=== PATIENT | male | born 1955 ===

== ENCOUNTER 2016-10-13 11:04 | Inpatient (IN) | payer MEDICAID ==
[2016-10-13 11:48] VITALS: BMI 39.2
[2016-10-13] MEDS ORDERED: Midazolam 2 MG/2 ML VIAL ONE (14:36)
[2016-10-13] MEDS ORDERED: Propofol 10 mg/ml Inj (20 ML) ONE (14:36)
[2016-10-13] MEDS ORDERED: ceFAZolin IV 1 gm in Dextrose 100 ML IVPB ONE (14:45)
[2016-10-13] MEDS ORDERED: Morphine Monoject Barrel PCA 1mg/ml IV PRN (17:39)
[2016-10-13] MEDS: HYDROmorphone 0.5 mg/0.5 ml ISec IVP PRN ×4 (18:07→18:55)
[2016-10-13] MEDS: Morphine Monoject Barrel PCA 1mg/ml IV PRN (19:00)
[2016-10-13] MEDS: ceFAZolin 1 gm FROZEN Premix 50 ML IVPB SCH (23:15)
[2016-10-13] MEDS: Potassium Chl 10 mEq in D5-1/2 1,000 ML IV SCH (23:25)
[2016-10-14] MEDS: ceFAZolin 1 gm FROZEN Premix 50 ML IVPB SCH (05:50)
[2016-10-14 06:46] LABS: BASO % 0.2 % (0.0-2.0); EOS % 0.1 % (0.0-4.0); HEMATOCRIT 38.4 % (35.0-51.0); LYMPH # 1.5 K/uL (1.0-4.3); LYMPH % 11.3 % (20.0-40.0); MEAN CELL VOLUME 84.8 fL (80.0-94.0); MEAN CORPUSCULAR HEMOGLOBIN 27.7 pg (27.0-31.0); MEAN CORPUSCULAR HGB CONC 32.6 g/dL (33.0-37.0); MEAN PLATELET VOLUME 8.2 fL (7.2-11.7); MONO # 1.5 K/uL (0.0-0.8); MONO % 10.8 % (0.0-10.0); RED CELL DISTRIBUTION WIDTH 14.6 % (11.5-14.5); WHITE BLOOD COUNT 13.6 K/uL (4.8-10.8)
[2016-10-14 06:49] LABS: CHLORIDE 100 mmol/L (98-107); POTASSIUM 3.9 mmol/L (3.6-5.2); SODIUM 139 mmol/L (132-148)
[2016-10-14 06:52] LABS: BLOOD UREA NITROGEN 19 mg/dL (9-20); CARBON DIOXIDE 26 mmol/L (22-30); GFR AFRICAN-AMERICAN > 60; GLUCOSE,RANDOM 123 mg/dL (75-110)
[2016-10-14 06:53] LABS: CALCIUM 6.9 mg/dl (8.6-10.4)
[2016-10-14] MEDS: Potassium Chl 10 mEq in D5-1/2 1,000 ML IV SCH ×2 (09:46→20:23)
[2016-10-14] MEDS: Morphine Monoject Barrel PCA 1mg/ml IV PRN (10:26)
[2016-10-14] MEDS: ceFAZolin IV 1 gm in Dextrose 50 ML IVPB SCH ×2 (13:17→21:37)
--- NOTE | 2016-10-14 16:07 | PCM.URO ---
Urology Progress Note - Objective Lab Results Last 24 Hours: Laboratory Results - last 24 hr 10/13/16 10/14/16 10/14/16 21:33 06:36 06:38 WBC 13.6 H RBC 4.53 Hgb 12.5 Hct 38.4 MCV 84.8 MCH 27.7 MCHC 32.6 L RDW 14.6 H Plt Count 292 MPV 8.2 Neut % (Auto) 77.6 H Lymph % (Auto) 11.3 L [place] % (Auto) 10.8 H Eos % (Auto) 0.1 Baso % (Auto) 0.2 Neut # 10.5 H Lymph # 1.5 [place] # 1.5 H Eos # 0.0 Baso # 0.0 Sodium 139 Potassium 3.9 Chloride 100 Carbon Dioxide 26 Anion Gap 17 BUN 19 Creatinine 1.2 Est GFR ( Amer) > 60 Est GFR (Non-Af Amer) > 60 POC Glucose (mg/dL) 113 H Random Glucose 123 H Calcium 6.9 L 10/14/16 10/14/16 07:54 11:15 WBC RBC Hgb Hct MCV MCH MCHC RDW Plt Count MPV Neut % (Auto) Lymph % (Auto) [place] % (Auto) Eos % (Auto) Baso % (Auto) Neut # Lymph # [place] # Eos # Baso # Sodium Potassium Chloride Carbon Dioxide Anion Gap BUN Creatinine Est GFR ( Amer) Est GFR (Non-Af Amer) POC Glucose (mg/dL) 116 H 144 H Random Glucose Calcium Intake & Output: Intake & Output 10/13/16 10/14/16 10/14/16 18:59 06:59 18:59 Intake Total 2000 900 Output Total 320 1010 Balance 1680 -110 Weight 175 lb Intake: IV 2000 Intake, IV Amount 900 Left Forearm 900 Output: Drainage 70 260 Right Lower Abdomen 40 Left Lower Abdomen 60 Urine 250 750 Urethral (Armstrong) 400 Other: Voiding Method Indwelling Catheter Vital Signs: Vital Signs - 24 hr 10/13/16 10/13/16 10/13/16 17:48 18:00 18:15 Temperature 97 F L Pulse Rate 71 60 60 Pulse Rate [ Apical] Respiratory 13 10 L 10 L Rate Blood Pressure 102/77 114/64 116/78 O2 Sat by Pulse 100 100 100 Oximetry 10/13/16 10/13/16 10/13/16 18:30 18:45 19:00 Temperature Pulse Rate 60 76 76 Pulse Rate [ Apical] Respiratory 12 11 L 11 L Rate Blood Pressure 112/76 102/68 114/73 O2 Sat by Pulse 100 100 100 Oximetry 10/13/16 10/13/16 10/13/16 19:15 19:30 20:00 Temperature Pulse Rate 81 74 85 Pulse Rate [ Apical] Respiratory 11 L 11 L 11 L Rate Blood Pressure 112/76 104/72 102/75 O2 Sat by Pulse 100 100 100 Oximetry 10/13/16 10/13/16 10/13/16 20:30 21:00 21:30 Temperature Pulse Rate 87 84 76 Pulse Rate [ Apical] Respiratory 15 14 13 Rate Blood Pressure 115/73 103/72 102/75 O2 Sat by Pulse 100 100 100 Oximetry 10/13/16 10/14/16 10/14/16 22:00 00:00 00:01 Temperature 98.1 F 98 F Pulse Rate 94 H 79 Pulse Rate [ 94 H Apical] Respiratory 14 15 Rate Blood Pressure 117/79 108/73 O2 Sat by Pulse 97 97 Oximetry 10/14/16 10/14/16 10/14/16 01:19 04:00 04:02 Temperature 98.2 F Pulse Rate 76 70 Pulse Rate [ Apical] Respiratory 14 14 Rate Blood Pressure 122/80 O2 Sat by Pulse 99 100 Oximetry 10/14/16 10/14/16 10/14/16 06:00 07:00 08:00 Temperature 98.3 F Pulse Rate 67 83 83 Pulse Rate [ Apical] Respiratory 12 12 13 Rate Blood Pressure O2 Sat by Pulse 98 96 98 Oximetry 10/14/16 10/14/16 10/14/16 08:01 09:00 10:00 Temperature Pulse Rate 76 69 94 H Pulse Rate [ Apical] Respiratory 12 16 20 Rate Blood Pressure 123/85 O2 Sat by Pulse 100 99 100 Oximetry 10/14/16 12:00 Temperature 98.5 F Pulse Rate Pulse Rate [ Apical] Respiratory Rate Blood Pressure O2 Sat by Pulse Oximetry
[2016-10-15] MEDS: Levothyroxine 88 MCG TAB PO SCH (06:13)
[2016-10-15] MEDS: ceFAZolin IV 1 gm in Dextrose 50 ML IVPB SCH ×3 (06:14→21:18)
[2016-10-15] MEDS: Potassium Chl 10 mEq in D5-1/2 1,000 ML IV SCH ×3 (06:15→17:34)
[2016-10-16] MEDS: Potassium Chl 10 mEq in D5-1/2 1,000 ML IV SCH ×5 (02:30→21:51)
[2016-10-16] MEDS: ceFAZolin IV 1 gm in Dextrose 50 ML IVPB SCH ×3 (05:25→21:49)
[2016-10-16] MEDS: Levothyroxine 88 MCG TAB PO SCH (05:30)
[2016-10-16] MEDS ORDERED: Magnesium Hydroxide Susp 30 ml UD PO ONE (06:53)
[2016-10-16] MEDS ORDERED: Pneumococcal 23-Valent Vaccine SC ONE (10:00)
[2016-10-17 01:20] VITALS: RESP 20; O2SAT 96
[2016-10-17] MEDS: ceFAZolin IV 1 gm in Dextrose 50 ML IVPB SCH ×2 (05:07→13:50)
[2016-10-17] MEDS: Levothyroxine 88 MCG TAB PO SCH (06:53)
[2016-10-17 08:07] VITALS: BP 152/87; PULSE 69; TEMP 98.9
--- NOTE | 2016-10-20 01:28 | PN ---
DATE: 10/14/2016 Overnight I spoke to the nurses several times. The patient was admitted actually to the intensive care unit because there were no beds available, bu t had some close monitoring. During the night, the patient put out about 100 mL from each DAIJA. Most of the fluid is draining from the Armstrong catheter. The urine outputs are all noted on the chart. PHYSICAL EXAMINATION: GENERAL: Well-nourished male currently resting comfortably. VITAL SIGNS: Within normal limits, included in the chart. LUNGS: Clear. ABDOMEN: Overall soft, nontender. DIAGNOSIS: Clinically localized prostate cancer. PLAN: We will continue to monitor the patient closely, measuring I's and O's, etc. We are going to continue to monitor the patient and, when a bed is available, we will plan to move th e patient as well. Jefe Humphreys MD cc: [id number] TT: 10/20/2016 01:26:47 Confirmation # [id number] Dictation # [id number] mn
--- NOTE | 2016-10-20 01:30 | PN ---
DATE: 10/16/2016 See the previously dictated notes, history and physical, operative report from 10/13, progress note f rom 10/14. SUBJECTIVE: He voices no major complaints and just beginning to learn how to take care of a Armstrong ca theter. He complains of some gas and constipation. See below-listed plans. No other medical changes. The patient is also being seen by his medical doctor, Dr. Ramesh Rivera. REVIEW OF SYSTEMS: Listed above. PHYSICAL EXAMINATION: GENERAL: Well-nourished male in no apparent distress. VITAL SIGNS: Noted. ABDOMEN: Overall soft. There are positive bowel sounds. Not grossly distended, mildly distended kn ow for sure. All within normal limits postoperative. Armstrong catheter is in place draining relatively clear urine. Again, some blood-tinge is noted. DAIJA ricks s minimal output at this point. See the plans listed below. DIAGNOSIS: Clinically, localized prostate cancer. He is status post radical retropubic prostatectom y. PLAN: The urology plan is as follows: I am planning to remove the JPS tomorrow and then discharge t he patient home. We are going to start arranging for a visiting nurse service and for Armstrong catheter care. I explained this all to the patient in detail with translation. Jefe Humphreys MD cc: [id number] TT: 10/20/2016 01:30:14 Confirmation # [id number] Dictation # [id number] mn
--- NOTE | 2016-10-20 01:35 | DS ---
See history and physical, operative reports, daily progress notes. The patient underwent a radical retropubic prostatectomy. He is postop. It was within the normal co urse. At this point, he has resumed his diet, he has resumed bowel function. We removed the JPs. The patient is being discharged home. The DAIJA operative course was noted to be minimal. Final pathology pending. Overall, the patient tolerated hospital stay well. There were no complications. He was given clear instructions for discharge to call me with any problems. He has my number. Armstrong catheter care was maintained. Visiting nurses arranged. Further plans will follow. The patient will be seen as an outpatient in t he office and I explained to the patient in about 3 weeks we are going to plan to remove the catheter and expectations have been defined in great detail. Jefe Humphreys MD cc: [id number] TT: 10/20/2016 01:35:02 [email or web address]
--- NOTE | 2016-10-20 10:29 | OP ---
PROCEDURE DATE: 10/13/2016 Urology operative report PREOPERATIVE DIAGNOSIS: Clinically localized prostate cancer. POSTOPERATIVE DIAGNOSIS: Clinically localized prostate cancer. PROCEDURE: Open procedure, pelvic lymph node dissection, left not right side, and an open radical re tropubic prostatectomy. SURGEON: Domo Humphreys MD. MARINE INSULATOR: Dr. Durand (see that by the report, I absolutely needed an horticultural nursery assistant surgeon for the diffic ult portions of the procedure). (See below). ESTIMATED BLOOD LOSS: About 500 mL. COMPLICATIONS: There were no complications. The patient, overall, tolerated the procedure well. SPECIMENS SENT DOWN: Prostate in its entirety, and included as 1 specimen, but unfortunately, separa evan are the seminal vesicles and the vas deferens which did not dissect off well. There were no complications. At the termination of the procedure, we left a Armstrong catheter via the urethra with 20 mL in the ballo on. We left bilateral JPs to drain the pelvic lymph node regions. There were no complications. INDICATIONS: See history and physical for the details. Very pleasant gentleman here for the above-l isted procedure. Risks and benefits were discussed at length. PROCEDURE IN DETAIL: After obtaining informed consent, the patient placed on table, routine monitors placed, timeouts were called to confirm the patient. Antibiotic prophylaxis was given. Now we situated the patient in a very careful, specific way. With the iliac crest over the break in the table so as to maximize the stretch on the prostate. We positioned the patient. Venodyne boots are in position for his lower extremities. We now do 2 things. We break the table in the area over the iliac crest. And we raise the kidney rest. This puts the maximum stretch on the prostate. Now under sterile technique, we insert a Armstrong catheter, keeping the Armstrong in the field sterilely. Use our usual routine drapes. We make a relatively small incision. Just above the pubic bone to below the umbilicus. Through this incision, we carried this down to the underlying fat and fascia. We define our midline. And dissect off the rectus muscle. I created pockets on the side. We go 1 layer little bit deeper to keep the fascia below. And we pull out. We now begin our lymph node dissection in the following fashion: I first identify where the iliac ve ssels are on each side. I create little pockets with my sponges folding them in thirds. And I placed a [place]. Very carefully, gently, but we have a nice pocket. We then dissect off the right side and the left side, we do in the exact same fashion. In fact, I moved from one side of the table to the other. I will describe it once as both very simil ar. I identified the external iliac vein. I create a little space with the [place]. And then create a little pocket. And dissect off. There is really no lymph node tissue. It is . Posteriorly, I used the obturator nerve as my guideline for my posterior limits. And there is really no tissue to speak of. We just sent this off in [place]. I achieved hemostasis and lymphostasis using cautery. There is so little tissue (there is no use for the Harmonic at this point). Once we did this, we now turned our attention back down to the midline. Armstrong catheter was inserted via the urethra originally, and I put about 30-40 mL. This will as sist me for the next step when I put the balloon behind the Valentin-Holtgrewe retractor. I now introduce the Valentin-Holtgrewe retractor well into the pelvis. Put the bladder on stretch and the prostate on stretch. I now turned our attention to the dorsal venous complex. We do the endopelvic fascia on the lateral sidewalls. We work ourselves posteriorly. Nicely we crea te really a beautiful pocket and plane. On each side, left and right. And we created posteriorly and anteriorly. Now we turn ourselves to the dorsal venous complex which I take with a right angle. With a large right angle, I can feel the Armstrong below, and we create a pocket, we tie off the veins using #2 Vicryl ties. At this point, I transect the dorsal venous complex. There was really no bleeding or backbleeding ei ther. We put just 1 backbleeding stitch, but really no bleeding at all noted. We now turn our attention to the urethra. We dissect with a right angle out the urethra on each side staying as close to the urethra as possible. Cutting anteriorly until we see the urethra. We pull it into our field. At this point, I put in my usual 6 stitches, the Monocryls. . Line up my clamps with the curve, the straight and the long curved posteriorly. Once we did this. We then transected the posterior urethra. At this point, there is no bleeding. We have a very nice picture. The next portion is to dissect off the posterior prostate off the back wall of the rectum. This part did not dissect easily. There are a lot of adhesions. And I tried creating a plane, both sharp and blunt dissection, but I just could not. I tried staying away from the rectum and staying out of the rectum, but I kept feeling like we were g oing too close into the prostate, and we were going to be subcapsular, so I tried doing various techn iques, moving left, lateral, nothing would work. So I was stuck posteriorly. So at this point, I even had the surgical pathologist with me to see if he could offer some assistance and help. Again, his help was invaluable. I needed him for procedure, but even with his extra hands in there. Of another surgeon, I just could not free posteriorly enough. So at this point, I did not want to make any injuries into the rectum. But I also did not want go so subcapsular and I did not want to go lateral. So I turned my attention to the bladder neck. At the bladder neck. I could feel where the balloon was. So we pulled the balloon into where the bladder neck would be. And I could feel nicely where the bladder neck would be. And I transected anteriorly. With a thick piece of tissue. We were not going to plan for a bladder neck sparing, but rather the opposite, open the bladder neck and then eventually tennis racket. See below for the repair portion. So I make a nice incision there and I used that for my anterior dissection. I am going to go the opp osite direction (similar to a robot). At this point, we open the bladder gently. I am able to find the ureteral orifices. I will mention that previously we given some Lasix, 20 mg. Once we identified the ureteral orifices, I passed up u reteral stents on both the left and right side. Once we did this, we had a great of confidence that we would not get the ureters. We now opened the bladder neck further. Again, the bladder neck is way away from the ureteral orific es. Now that I opened the anterior bladder neck. We tried creating a plane posteriorly and then laterally to dissect out the prostate. But still it was just very, very adherent posteriorly. In fact, to the point that I just could not c reate nice planes laterally or posteriorly at all, even knowing where the bladder neck was now. I ricks d closed the bladder back down once we out the bladder neck portion of the prostate. So with this difficulty that we removed the prostate as best as possible. Even though we could not get a good posterior plane to dissect out the vas deferens or the seminal ve sicles. So subsequently once we removed the prostate, we took them as separate specimens. Put them marci briscoe as 1 labelled specimen. At this point, we had now closed the bladder neck just with the Allis clamps. We had the ureteral ca theters in and draining well. I looked posteriorly to make sure there was no obvious prostate tissue. It looked clean. There is, really, essentially no bleeding to be identified. We looked back at the dorsal venous cava, everything looked very great at this point. So we took out the vas, the seminal vesicles, and the prostate itself. We now inspected the bladder carefully. It does not look like any major abnormalities. So we went for repair. We closed the bladder in a tennis racket fashion. Actually, in a little bit of a 2 layers. We left the ureteral catheters in throughout the entire trini e. Actually, all the way until the end when we will do the anastomosis. We closed in 2 layers. And we measured the opening for the bladder neck to be about 20 [place]. I do want to mention that I puckered up with chromic everting stitches at the bladder neck. We were now ready for the closure. We irrigated copiously. We now inserted a Armstrong catheter via the urethra. Once we were in, we actually checked the balloon. We lined it up well without clamps. And placed it into the bladder neck. We then reapproximated. At this point, once we were in, we had a nice closure. We took out all the retractors. The [place] was removed. We unflexed the table. We let down the ki dney rest so that the prostate would pull down nicely. Which my horticultural nursery assistant, Dr. Durand holding the Armstrong catheter in place, and I gently caressed the bladder p ortion down to the urethra. So that there would be no space or gaps. I then tied down our sutures 1, 3, 5, 7, 9, and 11. I will just mention now, but of course this is obvious, we had passed those stitches using the free n eedle from the bladder side. In the anatomical positions 1, 3, 5, and 7 on the bladder side as well, left and right, of course, al l just lined up in the usual fashion that we do. Now we gently, carefully, I tied them down with Dr. Durand holding a little bit of pressure from the ur ethral Armstrong via the penis. I just want to mention I checked the balloon to make sure it was inflated properly. We put about 15-18 mL. Not too much, but feel exactly pushing but not breaking the bladder neck. Once we did this, the sutures tied down very nicely. Actually, I could feel it closing each time. At this point, once we had our Armstrong in, we irrigated. There was really almost no extravasation. Wh atever I put in comes right back. And I am watching the area. It is not welling up. At this point, we just irrigate nice and gently. The Armstrong catheter is in place. We irrigate the pelvic region. We are ready for our closure, I placed 2 JPs in each side where the pelvic lymph node dissection is. We reapproximated some muscle bellies, and we closed the fascia with a running looped PDS. Carefully not suturing our JPs in place. And just closing very carefully. At this point, we closed the fascia, we closed the skin. In the usual fashion. Applied dry sterile dressing. I bring the JPs through the main wound. Attach them with stitches. We closed the wound with meena. Applied a dry sterile dressing. So I mentioned, we irrigate again. It irrigates very nicely. Whatever we put in comes out. Counts were correct. The patient tolerated the procedure well without difficulty. No transfusions were provided. The patient tolerated the procedure without complication. Jefe Humphreys MD cc: [id number] TT: 10/20/2016 03:24:24 tn
--- NOTE | 2016-10-20 10:29 | HP ---
REASON FOR ADMISSION: Treatment of prostate cancer. An extremely pleasant gentleman who is being admitted now for an open radical retropubic prostatectom y. HISTORY OF PRESENT ILLNESS: He is a 61-year-old. He has some underlying medical conditions. See th e history and physical and the medical clearance notes from his doctor, Dr. Ramesh Rivera. No histo ry of an ME or CVA. He came to me with an elevated PSA. We did a prostate biopsy and we found clinically localized prost ate cancer. We discussed options including specifically radiation treatments, radical prostatectomy versus open radical prostatectomy versus robotic prostatectomy. After discussing all the various options with the patient, he is here today. I explained to him the risks, benefits, treatment alternatives. Specifically discussed the risks of incontinence. We discussed the risk of incomplete resections requiring further treatment, specifical ly radiation treatment. We discussed also incontinence. We discussed impotence. We discussed erect ile dysfunction. We discussed no fluid with ejaculation. We discussed several risks and complicatio ns to the point of great details. We also discussed the benefits for surgery in terms of surgical removal, in terms of urinary troubles . We discussed radiation benefits. We discussed all these different advantages. We discussed downs ides to radiation as well. We discussed where, locations, etc. After all those have been discussed in the office with the patient on multiple visits to the office i n Croatian with translating, he is deciding that he prefers to have an open prostatectomy. I explained to the patient that a robotic prostatectomy is something that is a little more common in these days and growing, but he prefers to have an open prostatectomy, and he is here today for that a dmission. PAST MEDICAL AND SURGICAL HISTORY: As listed above. REVIEW OF SYSTEMS: ____ No weight loss, chest pain or shortness of breath. He is thirsty. He is he re with his . REVIEW OF SYSTEMS: No weight loss, chest pain or the like. PHYSICAL EXAMINATION: GENERAL: Well-nourished male in no apparent distress. VITAL SIGNS: Within normal limits ____. LUNGS: Clear ____ ABDOMEN: Overall soft, nontender. HEART: Normal S1, S2. GENITALIA: Normal male phallus without discharge. No testicular masses. RECTAL: A 30-gram prostate, soft, relatively smooth-alise. LABORATORIES: See chart. Prostate cancer was diagnosed; see the pathology that is on the chart. It was done as an outpatient in [place], but I have the pathology report. It is a [place] . DIAGNOSIS: Clinically localized prostate cancer. PLAN: This is a 61-year-old gentleman. We discussed options: Open, robotic, radiation, different f orms of radiation, other options, second opinion. After discussing all these, he prefers to have an open prostatectomy with me. I discussed the operation itself; discussed risks, benefits, treatment alternatives. Risk of incontinence and erectile dysfunction, risk of bleeding, risk of transfusion, risk of requiri ng further treatment including radiation. PLAN: After all of this has been explained to the patient who is here, the plan is a follows. 1. Antibiotic prophylaxis. 2. An open radical retropubic prostatectomy. 3. Then further plans to follow. Jefe Humphreys MD cc: [id number] TT: 10/20/2016 07:17:45 [email or web address]
== END 2016-10-17 14:41 | disposition home or self-care (01) | DRG 335 ==
LOC: C.9S 11:04 → C.9I 21:21 → C.6T 10-14 21:40
PROVIDERS: ADMIT Urology; ATTEND Urology
PROC: 07TC0ZZ Resection of Pelvis Lymphatic, Open Approach (ICD-10-PCS; 2016-10-13)
PROC: 0VT00ZZ Resection of Prostate, Open Approach (ICD-10-PCS; principal; 2016-10-13 14:30)
DX: C61 Malignant neoplasm of prostate (principal); Z68.39 Body mass index [BMI] 39.0-39.9, adult; K59.00 Constipation, unspecified

== ENCOUNTER 2016-11-24 11:24 | Observation (INO) | payer MEDICAID ==
[2016-11-24 11:24] VITALS: BMI 39.2
[2016-11-24 11:47] VITALS: BP 164/97; PULSE 77; TEMP 98.8; O2SAT 97
[2016-11-24 13:14] LABS: RBC URINE < 1 /hpf (0-3); URINE BILIRUBIN NEGATIVE (NEGATIVE); URINE BLOOD NEGATIVE (NEGATIVE); URINE COLOR Straw (YELLOW); URINE GLUCOSE (UA) NORMAL (Normal); URINE KETONE NEGATIVE (NEGATIVE); URINE LEUKOCYTE ESTERASE NEG Leu/uL (Negative); URINE PROTEIN NEGATIVE (NEGATIVE); URINE UROBILINOGEN NORMAL mg/dL (0.2-1.0); WBC URINE 5 /hpf (0-5)
--- NOTE | 2016-11-24 15:46 | C.PDOC ---
History Of Present Illness 61-year-old male presents to the emergency department with complaints of difficulty urinating. Patient states he is s/p recent prostate surgery by Dr. Pj Humphreys (2 weeks ago). He denies hematuria, abdominal pain, fever, dysuria. Patient currently taking Flomax. He states he called Dr Humphreys, who referred patient to the ED for evaluation. Time Seen by Provider: 11/24/16 11:57 Chief Complaint (Nursing): Male Genitourinary History Per: Patient History/Exam Limitations: no limitations Onset/Duration Of Symptoms: Days Current Symptoms Are (Timing): Still Present Severity: Moderate Past Medical History Reviewed: Historical Data, Nursing Documentation, Vital Signs Vital Signs: Last Vital Signs Temp 98.8 F 11/24/16 11:46 Pulse 77 11/24/16 11:46 Resp 20 11/24/16 16:11 BP 164/97 H 11/24/16 11:46 Pulse Ox 97 11/24/16 17:32 - Medical History PMH: HTN, Hypercholesterolemia Other Surgeries: prostate surgery - [facility] Procedures RESECTION OF PELVIS LYMPHATIC, OPEN APPROACH (10/13/16) RESECTION OF PROSTATE, OPEN APPROACH (10/13/16) Family History: States: No Known Family Hx - Social History Hx Alcohol Use: No Hx Substance Use: No - Immunization History Hx Tetanus Toxoid Vaccination: (unk) Hx Influenza Vaccination: (unk) Hx Pneumococcal Vaccination: No Review Of Systems Except As Marked, All Systems Reviewed And Found Negative. Constitutional: Negative for: Fever Cardiovascular: Negative for: Chest Pain, Palpitations Respiratory: Negative for: Cough, Shortness of Breath Gastrointestinal: Negative for: Nausea, Vomiting, Abdominal Pain, Diarrhea Genitourinary: Positive for: Other (Inability to void). Negative for: Dysuria, Hematuria Neurological: Negative for: Weakness, Numbness Physical Exam - Physical Exam Appears: Well, Non-toxic, No Acute Distress Skin: Warm, Dry, No Rash Head: Normacephalic Eye(s): bilateral: Normal Inspection Oral Mucosa: Moist Cardiovascular: Rhythm Regular Respiratory: Normal Breath Sounds, No Rales, No Rhonchi, No Wheezing Gastrointestinal/Abdominal: Normal Exam, Bowel Sounds, Soft, No Tenderness, No Guarding, No Rebound, Other (Midline well healing lower abdominal surgical scar. No erythema/discharge) Back: No CVA Tenderness Extremity: Normal ROM Neurological/Psych: Oriented x3 ED Course And Treatment O2 Sat by Pulse Oximetry: 97 (RA) Pulse Ox Interpretation: Normal Progress Note: UA & UCx ordered. Bladder scan ordered & done by nurse - showed only 55ml of urine. Patient then able to void normally. Pending eval by Dr. Humphreys in ED. 3:45pm- Patient seen by Dr. Pj Humphreys, recommends PO Ciprofloxacin and follow up in his office within 1week. Reevaluation Time: 15:45 Reassessment Condition: Improved (Patient resting comfortably, has been able to urinate normally. Seen by Dr. Humphreys in ED. Patient comfortably being discharged home, was instructed to continue Flomax and take Cipro. Patient to follow up with Dr. Humphreys in the office this week. he understands he should return to ED if symptoms return/worsen.) Disposition Counseled Patient/Family Regarding: Studies Performed, Diagnosis, Need For Followup, Rx Given - Disposition Disposition: HOME/ ROUTINE Disposition Time: 15:50 Condition: STABLE - POA Present On Arrival: None - Clinical Impression Clinical Impression: Difficulty urinating - Scribe Statement The provider has reviewed the documentation as recorded by the Germán Hagen All medical record entries made by the Chengibblade were at my direction and personally dictated by me. I have reviewed the chart and agree that the record accurately reflects my personal performance of the history, physical exam, medical decision making, and the department course for this patient. I have also personally directed, reviewed, and agree with the discharge instructions and disposition.
[2016-11-24 16:12] VITALS: RESP 20
== END 2016-11-24 15:48 | disposition home or self-care (01) ==
LOC: C.ER 11:24 → C.9OBSV 13:48
PROVIDERS: ADMIT Emergency Medicine; ATTEND Emergency Medicine
DX: R39.198 Other difficulties with micturition (principal); I10 Essential (primary) hypertension; E78.00 Pure hypercholesterolemia, unspecified
CPT/HCPCS: 81001; 87086; 99285; G0378

== ENCOUNTER 2016-12-09 12:03 | Day surgery (SDC) | payer MEDICAID ==
[2016-12-04 09:40] VITALS: BMI 34.2
[2016-12-09 12:51] VITALS: BP 138/90; PULSE 59; RESP 20; TEMP 97.8; O2SAT 97
== END 2016-12-09 16:50 | disposition home or self-care (01) ==
LOC: C.SDS 12:03
PROVIDERS: ATTEND Urology
DX: R31.29 Other microscopic hematuria (principal); Z53.9 Procedure and treatment not carried out, unspecified reason

== ENCOUNTER 2016-12-15 11:07 | Day surgery (SDC) | payer MEDICAID ==
[2016-12-04 09:39] VITALS: BMI 34.2
[2016-12-15] MEDS ORDERED: cefTRIAXone IV 1 gm in Dextros 50 ML IVPB ONE (15:15)
[2016-12-15] MEDS ORDERED: Iohexol 240 (50 ml) ONE (15:15)
[2016-12-15] MEDS ORDERED: Lactated Ringer's 1,000 ML IV ONE (15:15)
[2016-12-15] MEDS ORDERED: Propofol 10 mg/ml Inj (20 ML) ONE (15:20)
[2016-12-15] MEDS: HYDROmorphone 0.5 mg/0.5 ml ISec IVP PRN ×2 (16:06→16:23)
[2016-12-15 16:43] VITALS: O2SAT 100
[2016-12-15 17:30] VITALS: BP 139/93; PULSE 79; RESP 18; TEMP 97.7
--- NOTE | 2016-12-15 17:42 | HP ---
REASON FOR ADMISSION: Treatment of voiding dysfunction, bladder neck contracture ( meatal steno sis). HISTORY OF PRESENT ILLNESS: A very pleasant gentleman who has undergone a radical retropubic prostat ectomy, opened. We discussed options. The procedure itself was somewhat difficult with some bleedin g and really a lot of adhesions for the prostate cancer. In the end of the day, the final path ology report. I would like to recommend radiation treatments; however, I am aware of the extra compl ication risks associated with this. I discussed this with the patient and for now, he is not doing a nything further but there is a great chance of recurrence of his cancer and this is very concerning to me. However, the patient is here today for treatment of a bladder neck contracture and scar tissu e. We had discussed options. Today we are going to plan for incision of the bladder neck (I am going to mention now also though that the patient turns out to have meatal stenosis) but most importantly, th e patient has a bladder neck contracture and this is very concerning because of scar tissue and risk of recurrence of cancer and treatment and recurrence of scar tissue, makes this an ultimate, very big challenge. I have discussed this all with the patient at length. Today, he is being admitted for cystoscopy IOU and I am hoping that he can catheterize himself and pr event subsequent problems. I am still also worried about the recurrence of prostate cancer. To date, the PSA has remained well. PAST MEDICAL AND SURGICAL HISTORY: As listed on the chart. No history of an IA or CVA. SOCIAL HISTORY: He comes to the office with his . She is here with him today. PHYSICAL EXAMINATION: GENERAL: Well-nourished male in no apparent distress. VITAL SIGNS: As noted. LUNGS: Clear. ABDOMEN: Overall soft, nontender. No flank mass appreciated. GENITALIA: Normal phallus without discharge. No testicular masses. RECTAL: Soft, empty fossa. DIAGNOSES: Hematuria, urinary retention, bladder neck contracture (now he had also meatal stenosis). PLAN: Today we are going to provide antibiotic prophylaxis. We will do a cysto internal optical ure throtomy and then we will discuss options. A very difficult balance because I would actually recommen d radiation. Meanwhile, we are following his PSA and waiting to see if it goes up or not. It is concerning from a prostate cancer standpoint and then the other big thing is a bladder neck con tracture, scar, strictures, etc., and recurrence of such events. Needs to be weighed heavily. I have discussed this with the patient at length. Jefe Humphreys MD cc: [id number] TT: 12/15/2016 17:41:05 ln
--- NOTE | 2016-12-15 18:43 | OP ---
PROCEDURE DATE: 12/15/2016 PREOPERATIVE DIAGNOSES: Urinary retention, bladder neck contracture, history of prostate cancer, cur rently no evidence of disease. POSTOPERATIVE DIAGNOSES: Urinary retention, bladder neck contracture, history of prostate cancer, cu rrently no evidence of disease. PROCEDURES: Meatal dilation, cystoscopy, and incision of the bladder neck contracture. COMPLICATIONS: There were no complications. BLOOD LOSS: Less than 10 mL. FINDINGS: Significantly scarred down bladder neck, very heavy thick tissue of great concern. There were no complications. At the termination of the procedure, the patient has an indwelling Armstrong catheter, a Councill tip 18- Arabic, and we were able to get the 20 scope in easily. But, there is a lot of scar tissue. See the pictures that are enclosed in the chart. INDICATIONS: See history and physical for further details. This is a very pleasant gentleman who un derwent an open radical retropubic prostatectomy, a difficult procedure with a lot of scarring and ad hesions. ____ will dictate a separate note. Have been following the patient closely. My real recommendation, although margins seemed to be negat jazmin, but it is a high grade pathology and you can see the actual pathology report. I have been wanti ng the patient to have radiation except that he has been having so much trouble urinating that he is not right now a great candidate for this. After discussing various options with the patient, he is here today for the above listed procedure. There were no complications today. We inserted a catheter after making an incision. PROCEDURE: After informed consent, the patient placed on table, routine monitors placed, timeouts we re called to confirm the patient, positioning. The patient was given antibiotic prophylaxis. We tried to introduce the cystoscope; we were unable to. We had to dilate the meatus. Once we did this, we were able to introduce the scope. The patient does not quite have a veru; this has been removed, but there is a lot of scar tissue at t he bladder neck. I can feel like it has changed. I took multiple pictures, but we just were able to get a catheter in. Once we got the catheter in, we were able to make an incision anteriorly. But it is a lot of tissue. It is probably less than a centimeter in size in length. But, it is a thick amount of tissue. At this point, the bladder was inspected carefully. There is no bladder abnormalities. Perhaps (the re looks like there is some suture-like material floating (this could be the old Monocryls). There i s like 1 or 2 right at the bladder neck. At this point, I inserted a Armstrong catheter without difficulty. Left this to straight drainage. The patient tolerated the procedure well without complication. I do want to mention his rectal exam feel s empty; it is like an empty prostatic fossa. DIAGNOSES: Urinary retention, prostate cancer, bladder neck contracture and meatal stenosis. PLAN: Will be to leave the Armstrong catheter in place. Will discuss options. Will consider - I would like to recommend the possibility for a second opinion for the patient. In the meantime, to consider doing intermittent catheterization. The radiation may be appropriate. We could follow the PSA and monitor the patient and then decide what to do. But in terms of bladder neck contracture, it is a difficult situation. We will have to discuss options with the patient, the risk of incontinence, also it will significantl y effect ____, but the risk of recurrent cancer is also very significant. He is only a 61-year-old g entleman. I have discussed this at length with the patient and will continue to do so. Jefe Humphreys MD cc: [id number] TT: 12/15/2016 18:43:24 wa
== END 2016-12-15 17:32 | disposition home or self-care (01) ==
LOC: C.SDS 11:07
PROVIDERS: ATTEND Urology
DX: N32.0 Bladder-neck obstruction (principal); R31.29 Other microscopic hematuria; Z85.46 Personal history of malignant neoplasm of prostate
CPT/HCPCS: 52281; A4358; J0696; J1170; J7120

== ENCOUNTER 2018-06-22 00:11 | Emergency (ER) | payer MEDICAID ==
[2018-06-22 00:11] VITALS: BMI 34.2
[2018-06-22 00:32] VITALS: O2SAT 100
--- NOTE | 2018-06-22 00:39 | C.PDOC ---
History Of Present Illness 63 year old male presents to the ER with a complaint of shakiness and tremor since yesterday with slight weakness. Denies syncope, headache, nausea, or vomiting. Chief Complaint (Nursing): Weakness/Neurological Deficit History Per: Patient History/Exam Limitations: no limitations Onset/Duration Of Symptoms: Days (Yesterday) Current Symptoms Are (Timing): Still Present Seizure Or Post-ictal Symptoms: None Fall Associated With With Symptoms: No Recent travel outside of the [place]: No - Symptoms Of CVA Associated Symptoms: denies: Impaired Speech, Seizure Activity, New Vision Deficit(Left), New Vision Deficit(Right), Decreased Ability To Walk, New Confusion Past Medical History Reviewed: Historical Data, Nursing Documentation, Vital Signs Vital Signs: Last Vital Signs Temp 97.9 F 06/22/18 00:29 Pulse 67 06/22/18 00:29 Resp 20 06/22/18 00:29 BP 138/91 H 06/22/18 00:29 Pulse Ox 100 06/22/18 00:29 - Medical History PMH: HTN, Hypercholesterolemia, Hypothyroidism Denies: Chronic Kidney Disease - [facility] Procedures RESECTION OF PELVIS LYMPHATIC, OPEN APPROACH (10/13/16) RESECTION OF PROSTATE, OPEN APPROACH (10/13/16) Family History: States: Unknown Family Hx - Social History Hx Alcohol Use: No Hx Substance Use: No - Immunization History Hx Tetanus Toxoid Vaccination: (unk) Hx Influenza Vaccination: (unk) Hx Pneumococcal Vaccination: No Review Of Systems Constitutional: Positive for: Weakness Cardiovascular: Negative for: Chest Pain, Palpitations Respiratory: Negative for: Cough, Shortness of Breath Gastrointestinal: Negative for: Nausea, Vomiting Neurological: Positive for: Other (Shakiness, Tremors. No LOC). Negative for: Headache Physical Exam - Physical Exam Appears: Non-toxic, No Acute Distress Skin: Normal Color, Warm, Dry Head: Atraumatic, Normacephalic Eye(s): bilateral: Normal Inspection, PERRL, EOMI Oral Mucosa: Moist Neck: Normal, Supple Chest: Symmetrical, No Tenderness Cardiovascular: Rhythm Regular Respiratory: Normal Breath Sounds, No Rales, No Rhonchi, No Wheezing Gastrointestinal/Abdominal: Soft, No Tenderness Back: No CVA Tenderness Extremity: Normal ROM (x4) Neurological/Psych: Oriented x3, Normal Speech, Other (No focal deficits) ED Course And Treatment - Laboratory Results Result Diagrams: 06/22/18 01:14 06/22/18 01:14 ECG: Interpreted By Me, Viewed By Me ECG Rhythm: Sinus Rhythm ECG Interpretation: No Acute Changes, Abnormal Interpretation Of ECG: NSR, presence of U-wave, poosible hypokalemia. Rate From EC O2 Sat by Pulse Oximetry: 100 (Room air) Pulse Ox Interpretation: Normal Progress Note: CT head, blood work, CXR, and urinalysis ordered. Disposition Counseled Patient/Family Regarding: Diagnosis - Disposition Referrals: Ramesh Rivera MD [Primary Care Provider] - Disposition: HOME/ ROUTINE Disposition Time: 03:12 Condition: STABLE Prescriptions: Potassium Chloride 20 meq PO BID #[id number] [email or web address] Instructions: Hypokalemia (DC) Forms: [facility] (Faroese) - POA Present On Arrival: None - Clinical Impression Clinical Impression: Hypokalemia, Muscle weakness - Scribe Statement The provider has reviewed the documentation as recorded by the Scribblade Womack All medical record entries made by the Scribe were at my direction and personally dictated by me. I have reviewed the chart and agree that the record accurately reflects my personal performance of the history, physical exam, medical decision making, and the department course for this patient. I have also personally directed, reviewed, and agree with the discharge instructions and disposition.
[2018-06-22 01:17] LABS: BASO # 0.1 K/uL (0.0-0.2); EOS # 0.3 K/uL (0.0-0.7); EOS % 3.3 % (0.0-4.0); HEMOGLOBIN 14.6 g/dL (12.0-18.0); LYMPH # 2.1 K/uL (1.0-4.3); LYMPH % 24.4 % (20.0-40.0); MEAN CELL VOLUME 84.7 fL (80.0-94.0); MEAN CORPUSCULAR HEMOGLOBIN 29.8 pg (27.0-31.0); MEAN CORPUSCULAR HGB CONC 35.1 g/dL (33.0-37.0); MEAN PLATELET VOLUME 7.5 fL (7.2-11.7); MONO # 0.8 K/uL (0.0-0.8); MONO % 9.9 % (0.0-10.0); NEUT # 5.2 K/uL (1.8-7.0); NEUT % 61.4 % (50.0-75.0); RBC 4.91 Mil/uL (4.40-5.90); RED CELL DISTRIBUTION WIDTH 14.4 % (11.5-14.5); WHITE BLOOD COUNT 8.5 K/uL (4.8-10.8)
[2018-06-22 01:29] LABS: ALBUMIN 3.4 g/dL (3.5-5.0); ALT/SGPT 38 U/L (21-72); AST/SGOT 25 U/L (17-59); BLOOD UREA NITROGEN 18 mg/dL (9-20); CALCIUM 8.2 mg/dl (8.6-10.4); GFR NON-AFRICAN AMERICAN 56
[2018-06-22 01:36] LABS: SQUAMOUS EPITHIAL < 1 /hpf (0-5); URINE BACTERIA RARE (<OCC); URINE BILIRUBIN NEGATIVE (NEGATIVE); URINE BLOOD 1+ (NEGATIVE); URINE CLARITY Clear (Clear); URINE COLOR Straw (YELLOW); URINE GLUCOSE (UA) NORMAL (Normal); URINE LEUKOCYTE ESTERASE NEG Leu/uL (Negative); URINE PROTEIN NEGATIVE (NEGATIVE); URINE UROBILINOGEN NORMAL mg/dL (0.2-1.0)
[2018-06-22] MEDS ORDERED: Potassium Chloride 20 mEq/15 ml LIQ UD PO STA (01:37)
[2018-06-22] MEDS ORDERED: Potassium Chloride 20 mEq ER Tab PO ONE ×2 (01:45→01:46)
[2018-06-22 03:15] VITALS: BP 126/77; PULSE 72; RESP 18; TEMP 97.8
[2018-06-22 03:38] LABS: T4 14.3 ug/dL (5.5-11.0)
[2018-06-22 03:52] LABS: T3 1.79 nmol/L (1.49-2.60)
--- NOTE | 2018-06-22 08:57 | CT ---
Date of service: 06/22/2018 PROCEDURE: CT HEAD WITHOUT CONTRAST. HISTORY: Headache COMPARISON: None available. TECHNIQUE: Axial computed tomography images were obtained through the head/brain without intravenous contrast. Radiation dose: Total exam DLP = 981.76 mGy-cm. This CT exam was performed using one or more of the following dose reduction techniques: Automated exposure control, adjustment of the mA and/or kV according to patient size, and/or use of iterative reconstruction technique. FINDINGS: HEMORRHAGE: No intracranial hemorrhage. BRAIN: No mass effect or edema. No atrophy or chronic microvascular ischemic changes. Bilateral basal ganglia calcifications. VENTRICLES: Unremarkable. No hydrocephalus. CALVARIUM: Unremarkable. PARANASAL SINUSES: Unremarkable as visualized. No significant inflammatory changes. MASTOID AIR CELLS: Unremarkable as visualized. No inflammatory changes. OTHER FINDINGS: None. IMPRESSION: No acute intracranial abnormality. If symptoms persists, consider correlation with MRI. A preliminary report was generated at 1:33 a.m. on 06/22/[address] Mame Barlow from [employer]
--- NOTE | 2018-06-25 05:26 | CARD ---
APPROVED REPORT Date of service: 06/22/2018 EKG Measurement Heart [id number] <Conclusion> Normal sinus rhythm Normal ECG
== END 2018-06-22 04:10 | disposition home or self-care (01) ==
LOC: SUPCPDRO 00:11 → C.ER 00:11
DX: E87.6 Hypokalemia (principal); M62.81 Muscle weakness (generalized)
CPT/HCPCS: 70450; 80053; 81001; 84436; 84480; 85025; 93005; 96365; 99285; J3480

== ENCOUNTER 2018-08-11 08:05 | Day surgery (SDC) | payer MEDICAID ==
[2018-08-11 08:31] VITALS: PULSE 71; RESP 19; TEMP 99; O2SAT 99
[2018-08-11] MEDS ORDERED: Lactated Ringer's 1,000 ML IV ONE (10:00)
[2018-08-11 10:56] VITALS: BP 123/69
== END 2018-08-11 10:57 | disposition home or self-care (01) ==
LOC: C.ENDO 08:05
PROVIDERS: ATTEND Internal Medicine Gastroenterology
DX: K64.0 First degree hemorrhoids (principal); R19.4 Change in bowel habit
CPT/HCPCS: 45378; J7120